=== PATIENT | female | born 1990 | race Caucasian/White ===

== ENCOUNTER 2021-12-05 00:26 | Emergency (ER) | payer MEDICAID ==
[~2021-12-05] VITALS: Ht 165.1 cm; Wt 67.1 kg
--- NOTE | 2021-12-05 00:42 | NUR ---
1st call, no answer searched waiting room and outside ED area.
--- NOTE | 2021-12-05 00:55 | NUR ---
PT AMBULATED TO ER WITH STEADY GAIT C/O PELIC PAIN X1 WK WITH DYSURINA AND WHITE VAGINAL DISCHARGE. NO SOB OR LABORED BREATHING, AFEBRILE. DENIES CP/PRESSURE. A/O X4, DENIES ANY CP/PRESSURE. NO N/V/D. CLEAR SPEECH, COMPLETE SENTENCES, ABLE TO MOVE ALL EXTREMITIES WITHIN NORMAL LIMITS. ALL PULSES PALPABLE.
--- NOTE | 2021-12-05 01:05 | NUR ---
DR. CASTILLO AT BEDSIDE, MSE IN PROGRESS.
[2021-12-05 01:31] LABS: *BILIRUBIN,URIN NEGATIVE (NEGATIVE); *BLOOD, URINE NEGATIVE (NEGATIVE); *CLARITY,URINE CLEAR (CLEAR); *COLOR,URINE YELLOW (YELLOW); *KETONES,URINE NEGATIVE (NEGATIVE); *UROBILINOGEN,URINE 0.2 E.U./dl (NORMAL); LEUKOCYTE ESTERASE ,URINE NEGATIVE (NEGATIVE); NITRITE, URINE NEGATIVE (NEGATIVE); UGLUCOSE NEGATIVE (NEGATIVE)
[2021-12-05 01:32] LABS: HEMATOCRIT 35.7 % (31.2-41.9); MEAN CORPUSCULAR HEMOGLOBIN 33.2 uug (24.7-32.8); MEAN CORPUSCULAR VOLUME 95.1 fL (75.5-95.3); PLATELET COUNT (AUTO) 238 K/uL (179-408)
[2021-12-05 01:45] LABS: CARBON DIOXIDE 28 mmol/L (21-32); CHLORIDE 103 mmol/L (98-107); CREATININE 0.6 mg/dL (0.6-1.3); GLUCOSE 73 mg/dL (74-106); POTASSIUM 3.7 mmol/L (3.5-5.1); UREA NITROGEN, BLOOD 10 mg/dL (7-18)
[2021-12-05 01:51] LABS: ALANINE AMINOTRANSFERASE 21 U/L (14-59); ALKALINE PHOSPHATASE 41 U/L (50-136); ASPARTATE AMINOTRANSFERASE 10 U/L (15-37); BILIRUBIN,DIRECT < 0.1 mg/dL (0.0-0.2); BILIRUBIN,TOTAL 0.1 mg/dL (0.2-1.0); TOTAL PROTEIN, SERUM 6.6 g/dL (6.4-8.2)
--- NOTE | 2021-12-05 01:55 | NUR ---
DOMO CASTILLO FOR PELVIC EXAM.
[2021-12-05] MEDS ORDERED: OXYC-128 PO (02:29)
[2021-12-05] MEDS ORDERED: CLOT21CR12 VG (02:31)
--- NOTE | 2021-12-05 02:39 | NUR ---
Patient discharged to home in stable condition. Written and verbal after care instructions given. Patient verbalizes understanding of instructions. Stressed follow up or return to ER for worsening s/s. Patient is A/O x4. no SOB, distress noted
[2021-12-05 02:44] VITALS: BP 110/70
== END 2021-12-05 02:45 | disposition home or self-care (01) ==
LOC: ER 00:38
DX: R10.2 Pelvic and perineal pain (principal); M79.10 Myalgia, unspecified site; G89.29 Other chronic pain; M54.9 Dorsalgia, unspecified; N89.8 Other specified noninflammatory disorders of vagina; Z86.16 Personal history of COVID-19
CPT/HCPCS: 36415; 85025; 87081; A4663